=== PATIENT | female | born 1950 | race Caucasian/White ===

== ENCOUNTER → 2017-05-15 | Outpatient (CLI) | payer OTHER, MEDICARE ==
[2015-02-20 20:45] VITALS: BP 142/88
[~2017-05-15] MED LIST: ADVAIR 250/28 DISKU1 IH; ALBUTEROL2.5 MG/3 M IH; ALLEGRA180 MG PO; ATROVENT I0.2 MG/1 M IH; CO Q-1050 MG PO; CRESTOR5 MG PO; FLONASE NASAL S16 GM NS; FLONASE0.05 MG/AC NS; GOOD SENSE ASPI81 M1 PO; LIPITOR20 MG PO; LISINOPRIL20 MG PO; MYCELEX TROCHE10 MG MM; OMNICEF 300MG300 MG PO; OSTEO-BI-FLEX 21 TAB PO; OXYBUTYNIN5 MG PO; PRILOSEC 20MG20 MG PO; QUALITY CHOICE600 M1 PO; SINGULAIR10 MG PO; SYNTHROID0.025 MG PO; VENTOLIN0.09 MG IH; VIBRAMYCIN100 MG PO
== END ==
LOC: RAD 11:00
DX: R22.1 Localized swelling, mass and lump, neck (principal); E04.1 Nontoxic single thyroid nodule

== ENCOUNTER → 2017-12-23 | Outpatient (CLI) | payer OTHER, MEDICARE ==
[2015-02-20 20:45] VITALS: BP 142/88
== END ==
LOC: RAD 13:56
DX: E04.2 Nontoxic multinodular goiter (principal)

== ENCOUNTER → 2018-12-22 | Outpatient (CLI) | payer MEDICARE, OTHER ==
[2015-02-20 20:45] VITALS: BP 142/88
== END ==
LOC: RAD 12-15 11:00
DX: E04.2 Nontoxic multinodular goiter (principal)

== ENCOUNTER → 2019-03-09 | Day surgery (SDC) | payer MEDICARE, OTHER ==
[2015-02-20 20:45] VITALS: BP 142/88
== END ==
LOC: MSO 07:39
DX: D12.0 Benign neoplasm of cecum (principal); K59.00 Constipation, unspecified; Z86.010 Personal history of colon polyps; Z90.49 Acquired absence of other specified parts of digestive tract; Z90.710 Acquired absence of both cervix and uterus; Z79.82 Long term (current) use of aspirin; Z88.8 Allergy status to other drugs, medicaments and biological substances; Z88.6 Allergy status to analgesic agent; J45.909 Unspecified asthma, uncomplicated; I10 Essential (primary) hypertension; K21.9 Gastro-esophageal reflux disease without esophagitis; F41.9 Anxiety disorder, unspecified; Z85.828 Personal history of other malignant neoplasm of skin
CPT/HCPCS: 00811; J2704; J7120

== ENCOUNTER → 2021-04-24 | Outpatient (CLI) | payer MEDICARE, OTHER | LOC: LAB 14:35 | DX: J47.9 Bronchiectasis, uncomplicated (principal) ==

== ENCOUNTER → 2021-05-17 | Outpatient (CLI) | payer MEDICARE, OTHER | LOC: LAB 14:17 | DX: J47.9 Bronchiectasis, uncomplicated (principal) ==

== ENCOUNTER → 2022-05-30 | Day surgery (SDC) | payer MEDICARE, OTHER | LOC: MSO 07:17 | DX: H25.811 Combined forms of age-related cataract, right eye (principal); G47.33 Obstructive sleep apnea (adult) (pediatric) | CPT/HCPCS: 00142; J0171; J2250; V2632 ==

== ENCOUNTER → 2024-05-18 | Day surgery (SDC) | payer MEDICARE, OTHER ==
[~2024-05-18] MED LIST changes: +Lidocaine PF 2% (20 MG/ML) 5 ML VIAL ONE
== END | disposition home or self-care (01) ==
LOC: MSO 09:36
DX: Z12.11 Encounter for screening for malignant neoplasm of colon (principal); Z86.010 Personal history of colon polyps; G47.33 Obstructive sleep apnea (adult) (pediatric)
CPT/HCPCS: 00812; J2704; J7120

== ENCOUNTER 2024-07-02 18:39 | Emergency (ER) | payer MEDICARE, OTHER ==
[~2024-07-02 18:39] MED LIST changes: -Lidocaine PF 2% (20 MG/ML) 5 ML VIAL ONE
[2024-07-02 19:44] VITALS: BP 145/75
[2024-07-03] MEDS ORDERED: VESICARE10 MG PO (15:18)
[2024-07-03] MEDS ORDERED: ROPINIROLE HYD0.5 MG PO (15:19)
[2024-07-03] MEDS ORDERED: CLARITIN LIQUI-10 MG PO (15:19)
== END 2024-07-02 19:44 | disposition home or self-care (01) ==
LOC: ED 18:39
DX: S51.812A Laceration without foreign body of left forearm, initial encounter (principal); Z23 Encounter for immunization; W01.0XXA Fall on same level from slipping, tripping and stumbling without subsequent striking against object, initial encounter
CPT/HCPCS: 90715

== ENCOUNTER 2024-07-03 09:20 | Outpatient (RCR) | payer MEDICARE, OTHER ==
[~2024-07-03] VITALS: Wt 87.3 kg
[2024-07-03 09:32] VITALS: BP 146/81
[2024-07-03] MEDS ORDERED: VESICARE10 MG PO (15:18)
[2024-07-03] MEDS ORDERED: CLARITIN LIQUI-10 MG PO (15:19)
[2024-07-03] MEDS ORDERED: ROPINIROLE HYD0.5 MG PO (15:19)
--- NOTE | 2024-07-03 15:20 | NUR ---
PT PRESENTS TODAY WITH HER . HERE FOR SKIN TEAR TO LEFT FOREARM. SEE PROVIDER NOTE FROM Cem CHIU APRN. WOUNDS WERE CLEANED WITH HIBICLENS USING DEBRISOFT LOLLY. RINSED AND DRIED WELL. COVERED WITH MEPITEL AND SIZE E TUBIGRIP.
== END 2024-07-06 | disposition home or self-care (01) ==
LOC: AMSURD
DX: S51.812A Laceration without foreign body of left forearm, initial encounter (principal); W19.XXXA Unspecified fall, initial encounter
CPT/HCPCS: 18897

== ENCOUNTER 2024-07-22 08:29 | Outpatient (RCR) | payer MEDICARE, OTHER ==
[2024-07-07 10:05] VITALS: BP 144/75
--- NOTE | 2024-07-07 10:38 | NUR ---
PT HERE FOR WOUND CARE TO LEFT FOREARM. MEASUREMENTS AND PICTURES TAKEN TODAY. SEE PROVIDER NOTE FROM Cem CHIU APRN
[2024-07-10 08:27] VITALS: BP 144/85
--- NOTE | 2024-07-10 08:35 | NUR ---
PATIENT HERE FOR WOUND CARE TO LEFT FOREARM. MEASUREMENTS AND REDRESSED TODAY. SEE ROBERT HERRERA NOTE.
[2024-07-13 13:48] VITALS: BP 152/90
[2024-07-15 13:30] VITALS: BP 155/48
--- NOTE | 2024-07-15 14:45 | NUR ---
PATIENT AMBULATORY TO ROOM 5 FOR WOUND CARE TO LEFT FOREARM. MEASUREMENTS AND PICTURES TAKEN. SEE SHARON CHIU APRN PROVIDER NOTE.
[~2024-07-22] VITALS: Ht 167.6 cm; Wt 87.3 kg
[~2024-07-22 08:29] MED LIST changes: +CLARITIN LIQUI-10 MG PO; +ROPINIROLE HYD0.5 MG PO; +VESICARE10 MG PO
[2024-07-22 08:37] VITALS: BP 123/47
--- NOTE | 2024-07-22 08:40 | NUR ---
PATIENT AMBULATORY TO ROOM 5 FOR WOUND CARE TO LEFT FOREARM. MEASUREMENTS AND PHOTOGRAPHS TAKEN. AQUAPHOR ON NON-OPEN SURROUNDING AREAS DAILY, HARRY COLLAGEN TO OPEN AREA AND MEPITEL. DRESSING CHANGES EVERY 3 DAYS UNTIL CLOSED, ONCE CLOSED AQUAPHOR TO DRY SKIN. PATIENT GIVEN SUPPLIES FOR AT HOME DRESSING CHANGES. PATIENT EDUCATED ON TO RETURN IF SIGNS AND SYMPTOMS OF INFECTION OR DRCREASED WOUND HEALING. PATIENT VERBALIZED UNDERSTANDING.
== END 2024-08-06 | disposition home or self-care (01) ==
LOC: AMSURD
DX: T14.8XXA Other injury of unspecified body region, initial encounter (principal)
CPT/HCPCS: 18893; 18895; A6021; A6197